=== PATIENT | male | born 1965 | race Caucasian/White ===

== ENCOUNTER 2018-08-22 18:14 | Observation (INO) | payer OTHER, SELFPAY ==
[2018-08-22] VITALS (8 sets, daily range): BP systolic 112–150; BP diastolic 70–98; PULSE 61–96; RESP 15–23; TEMP 36.8–37; O2SAT 96–99; BMI 30.9; BMI 29.8
--- NOTE | 2018-08-22 18:36 | EKG12_ITS ---
Test Reason : NEURO Blood Pressure : / mmHG Vent. Rate : 076 BPM Atrial Rate : 076 BPM P-R Int : 154 ms QRS Dur : 086 ms QT Int : 390 ms P-R-T Axes : 035 018 011 degrees QTc Int : 438 ms Normal sinus rhythm Normal ECG Confirmed by SONI BULLARD, ABENA ([id number]), editor farm journal BRADLEY MALLOY ([id number]) on 08/26/2018 1:56:03 PM Referred By: Bryon Ya Confirmed By:ABENA SHAFER MD
--- NOTE | 2018-08-22 18:36 | CT_ITS ---
STUDY: CTA NECK WITH CONTRAST REASON FOR EXAM: Male, 53 years old. Right sided numbness to the face and tongue. RADIATION DOSAGE (If Supplied By Facility): CTDIvol = ( 30.02 ) mGy, DLP = ( 1637.11 ) mGycm TECHNIQUE: CT angiography with multi-detector data acquisition was performed from the aortic arch to the skull base following intravenous administration of 100 IV Isovue 370. MIP images were reconstructed from the axial data set. Post-processing of the angiographic images was performed, with multiplanar reformation and 3D reconstruction. Individualized dose optimization techniques were used for this CT. COMPARISON: None. FINDINGS: AORTIC ARCH: There is a bovine origin of the great vessels arising from the aortic arch with a common origin of the brachiocephalic and left common carotid artery. Normal origin of the left subclavian artery. RIGHT CAROTID ARTERIES: Normal right common carotid artery (CCA). Normal right common carotid bulb. Normal origin of the right internal carotid (ICA) artery without a hemodynamically significant stenosis. Trace tortuosity of the visualized cervical portion of the right internal carotid artery. Normal origin of the right external carotid artery (ECA). LEFT CAROTID ARTERIES: Normal left common carotid artery (CCA). Normal left common carotid bulb. Normal origin of the left internal carotid (ICA) artery without a hemodynamically significant stenosis. Normal visualized cervical portion of the left internal carotid artery. Normal origin of the left external carotid artery (ECA). VERTEBRAL ARTERIES: Normal bilateral vertebral arteries. CT/CTA Neck W/WO Contrast IMPRESSION: Normal bilateral cervical carotid and vertebral arteries. Electronically Signed: Zachary Díaz DO at 19:15 EDT Tel [phone], Service support ,
--- NOTE | 2018-08-22 18:36 | CT_ITS ---
STUDY: CTA OF THE BRAIN REASON FOR EXAM: Male, 53 years old. Right sided numbness in the face and tongue. RADIATION DOSAGE (If Supplied By Facility): CTDIvol = ( 30.02 ) mGy, DLP = ( 1637.11 ) mGycm TECHNIQUE: CT angiography was performed with a multi-detector CT scanner. Data acquisition was obtained from the skull base through the vertex following intravenous administration of 100 IV Isovue 370. MIP images were reconstructed from the axial data set. Post-processing of the angiographic images was performed, with multiplanar reformation and 3D reconstruction. Individualized dose optimization techniques were used for this CT. COMPARISON: None. FINDINGS: Normal bilateral petrous carotid arteries. Normal right cavernous carotid artery with a normal supraclinoid bifurcation. Normal left cavernous carotid artery with a normal supraclinoid bifurcation. Normal right A1 segments of the anterior cerebral artery. Normal left A1 segments of the anterior cerebral artery. Normal intact anterior communicating artery (ACOM). Normal bilateral A2 segments of the anterior cerebral arteries. Normal right M1 and M2 segments of the middle cerebral arteries, with a normal M1 bifurcation. Normal left M1 and M2 segments of the middle cerebral arteries, with a normal M1 bifurcation. Normal right posterior communicating artery (PCOM). Normal left posterior communicating artery (PCOM). Normal bilateral vertebral arteries. Normal basilar artery with a normal basilar bifurcation. The visualized bilateral superior cerebellar (SCA) arteries are normal. 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 Normal P2 and visualized P3 segments of the bilateral posterior cerebral arteries. There is no demonstrated aneurysm of the [place] of [place]. There is no demonstrated abnormality of the visualized brain. 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 The P2 and P2 segments are partially supplied via the posterior communicating arteries. There is no aneurysm or other evidence of abnormality of the cervical loss. Electronically Signed: Zachary Díaz DO at 19:13 EDT Tel [phone], Service support ,
[2018-08-22 18:55] LABS: Absolute Lymphocyte Count 2.45 X10^3/ul (0.83-4.51); Absolute Neutrophil Count 3.7 X10^3/uL (2.0-7.7); Basophil# 0.03 X10^3/uL; Basophil% 0.4 % (0-1); Eosinophil# 0.16 X10^3/uL; Eosinophils% 2.3 % (0-5); Hematocrit 46.9 % (40-54); Hemoglobin 16.8 g/dl (13.0-16.5); Lymphocyte # 2.45 X10^3/ul (4.0); Lymphocyte % 35.4 % (19-41); Mean Corp Hgb Conc 35.8 g/gl (32-36); Mean Corpuscular Hgb 31.8 pg (27.0-32.0); Mean Corpuscular Volume 88.8 fL (80-94); Mean Platelet Vol. 10.3 fl (6.2-12.0); Monocyte# 0.55 X10^3/uL; Monocyte% 7.9 % (0-10); Neutrophil # 3.72 X10^3/uL (2.7-7.7); Neutrophil % 53.9 % (47-70); Platelet Count 246 K/mm3 (150-450); RBC Distribution Width CV 12.6 % (11.6-14.6); RBC Distribution Width SD 40.4 fl (35.1-43.9); Red Blood Count 5.28 M/mm3 (4.6-6.2); White Blood Count 6.9 K/mm3 (4.4-11.0)
[2018-08-22 18:56] LABS: POSITIVE COUNT NO; POSITIVE DIFFERENTIAL NO; POSITIVE MORPHOLOGY NO
[2018-08-22 19:01] LABS: Bedside Glucose 95 mg/dL (70-110)
[2018-08-22 19:04] LABS: Prothrombin Time (Protime)PT. 13.3 SECONDS (11.7-14.9)
[2018-08-22 19:08] LABS: Anion Gap 4 (5-15); BUN 22 mg/dL (7-18); BUN/Creat Ratio 19.3 RATIO (10-20); Calcium,Total 8.8 mg/dL (8.5-10.1); Chloride 106 mmol/L (98-107); Creatinine, Serum 1.14 mg/dL (0.70-1.30); EST Glomerular Filtration Rate 72 mL/min (>60); Est Glom Filt Rate - Afr Amer 87 mL/min (>60); Glucose 86 mg/dL (74-106); Potassium 3.7 mmol/L (3.5-5.1); Sodium Level 139 mmol/L (136-145)
--- NOTE | 2018-08-22 19:44 | PCM.HP.STD ---
Problem List (1) Stroke-like symptoms Status: Acute History of Present Illness Date of Admission: 08/22/18 Chief Complaint: right face numbness The patient is a 53 year old M with a significant history of chronic migraine; and kidney stones who presented to the emergency department with right sided facial numbness. His symptoms started a little over 4 hours before presentation. He reported that his symptoms started with tightness of the throat. Then he had numbness of the right side of his face and numbness of his tongue. Also he had teary and blurry vision of the right eye. He reported that he was unable to suck on a milkshake. His reports that patient had some mild changes in his speech. Patient denies any new focal weakness. However reported that he fell in June 2018. He reported that he had right arm weakness a week before presentation that he attributes to his fall. He reported that he is unable to wing his right shoulder and has seen a physical therapist for this. Emergency department doctor reported an NIH of 3 at presentation. Past Medical History Medical History: Medical History (Last Updated 08/22/18 @ 20:22 by Bryon Ya MD) Kidney stones N20.0 Migraine G43.909 Allergies No Known Allergies Allergy (Verified 08/22/18 18:22) Home Medications: Ambulatory Orders Medication Instructions Recorded NK 08/22/18 Surgical History: - - Left elbow bursa sac removal; and laser surgery on bilateral eyes. Lives: With Family Smoking Status: Never smoker Alcohol: None - *Family History Maternal History Items: Diabetes, Heart Disease, Hypertension, - - His mother had a massive heart attack Paternal History Items: Diabetes, Heart Disease - His father had multiple heart attack and from a heart attack., Hypertension Review of Systems Constitutional: Denies: Chills, Fever, Weight Change Eyes: Reports: Blurred vision - Right eye HEENT: Denies: Head Aches, Sinus Congestion, Sinus Drainage Cardiovascular: Denies: Chest Pain, Palpitations Respiratory: Denies: Cough, Shortness of breath at rest, Sputum production Gastrointestinal: Denies: Abdominal Pain, Nausea, Vomiting Genitourinary: Denies: Dysuria Musculoskeletal: Denies: Joint Pain, Joint Tenderness Skin: Denies: Rash, Wounds Neurological: Reports: Blurred vision - Right eye, Change in Speech, Focal weakness - Right shoulder that he attributes to a fall in and started about a week ago prior to his current presentation., Numbness. Denies: Tingling Psychiatric: Denies: Anxiety, Depression, Homicidal Ideations, Suicidal Ideations Hematologic/ Lymphatic: Denies: Easy Bruising, Easy Bleeding VTE Information - Inpt Only VTE Present on Admission: No VTE Mechan Device Prophylaxis: None VTE Pharm Prophylaxis ordered?: Yes Patient Problems: Active and Suspected Problems (Last Updated 08/22/18 @ 20:22 by Bryon Ya MD) Stroke-like symptoms (Acute) - Physical Exam General: Alert, Oriented x3, Cooperative HEENT: Atraumatic, PERRLA, EOMI, Normocephalic Neck: Supple, No JVD, Negative Carotid Bruits Lungs: Clear to auscultation, Normal air movement Cardiovascular: Regular rate, No murmurs Abdomen: Bowel Sounds Present, Soft, Non Tender Extremities: No edema, Capillary Refill Less than 3 Seconds Skin: No rashes, No breakdown Musculoskeletal: No Tenderness to Palpation of Joints or Extremities Neurological: Cranial nerves II-XII grossly intact, Motor Exam 5/5 strength throughout, Facial Droop - Mild on the right side, - - No dysmetria. Sensation changes on the right face. Can wrinkle bilateral forehead. Psych/Mental Status: Normal Affect, Appropriate Vital Signs Temp Pulse Resp BP Pulse Ox 98.6 F 96 16 112/70 99 08/22/18 18:15 08/22/18 19:30 08/22/18 19:30 08/22/18 19:30 08/22/18 19:30 Oxygen Delivery Method Room Air Weight: 103.374 kg Body Mass Index (BMI) 30.9 Finger Stick Blood Glucose 95 Laboratory Tests Past 24 Hrs 08/22/18 08/22/18 08/22/18 18:23 18:23 18:23 WBC 6.9 RBC 5.28 Hgb 16.8 H Hct 46.9 MCV 88.8 MCH 31.8 MCHC 35.8 RDW 12.6 RDW Differential 40.4 Plt Count 246 MPV 10.3 Immature Gran % (Auto) 0.100 Neut % (Auto) 53.9 Lymph % (Auto) 35.4 [place] % (Auto) 7.9 Eos % (Auto) 2.3 Baso % (Auto) 0.4 Absolute Neuts (auto) 3.7 Absolute Lymphs (auto) 2.45 Total Counted Not Reportable PT 13.3 INR 1.0 APTT 29.0 Sodium 139 Potassium 3.7 Chloride 106 Carbon Dioxide 29.0 Anion Gap 4 L BUN 22 H Creatinine 1.14 Estim Creat Clear Calc 83.20 Est GFR (MDRD) Af Amer 87 Est GFR (MDRD) Non-Af 72 BUN/Creatinine Ratio 19.3 Glucose 86 Calcium 8.8 Troponin I < 0.015 POC Glucose 08/22/18 18:56 POC Glucose 95 Assessment/Plan All Active Problems (Last Updated 08/22/18 @ 20:22 by Bryon Ya MD) Stroke-like symptoms (Acute) The patient is a 53 year old M with a significant history of chronic migraine; and kidney stones who presented to the emergency department with right sided facial numbness; tongue numbness; blurry vision of the right; mild dysarthria and difficulty sucking a milkshake consistent with strokelike symptoms. Strokelike symptoms Emergency Department doctor reported that NINDS NIH Scale on presentation of 3. CT/CTA head and neck per stroke protocol was unremarkable. Physical therapy, occupational therapy and speech therapy to work with patient. N.p.o. until bedside swallow eval. Daily aspirin. High intensity statin Lipid profile and A1c ordered. His blood pressure is within goal and no need for permissive hypertension at this time. Emergency department doctor discussed the case with a neurologist, Dr. Barragan and an MRI was recommended. Will do MRI in a.m. Echocardiogram ordered. Placed on PCU on telemetry. Differential diagnosis include complex migraine. Of note patient was not hypoglycemic on presentation. Patient could raise bilateral eyebrows; and wrinkle his forehead making Keith's palsy less likely. Consider discussing case with neurologist. DVT prophylaxis Subcutaneous heparin ordered. Code Visit OBSV E&M: 00757 Initial observation care L3
--- NOTE | 2018-08-22 19:49 | ED.DCSUM_ITS ---
- ER Visit Summary Date of Service: 08/22/18 Chief Complaint: [Paresthesias to right side of face] History of Present Illness: The patient is a 53 M [presents to the emergency department with numbness and tingling to the right side of his face and the right side of his mouth not working right. Patient states that he had some vague symptoms that started around 2 PM where he yawned and he felt a kind of a tightness to the right side of his face and just an odd numbness. Patient then apparently was trying to eat a milkshake around 4:30 PM when he noticed that he was drooling and could not work the straw properly. Presents to the ER for evaluation. Patient denies any falls or head injuries. He denies any focal weakness. He denies visual changes. He denies difficulty with speech. Denies recent illness or viral infection. Denies any new medications. Patient does have a history of migraines but he does not have a migraine currently.] Physical Examination: [HEENT-PERRLA, EOMI. Cranial nerves II through XII grossly intact. TMs clear. Mucous membranes moist. No adenopathy. Patient is able to wrinkle both sides of the forehead symmetrically. Patient has weakness of the right upper eyelid. Patient has right-sided facial droop. Tongue is in the midline without fasciculation. Cardiovascular-regular rate and rhythm without murmur or ectopy Lungs-clear to auscultation, chest wall stable without crepitus or subcu emphysema Abdomen-normoactive bowel sounds, soft, nontender, no rebound or rigidity, no peritoneal signs. Neuro [id number] and heel bowman testing within normal limits, negative Romberg, negative , Fundi benign. NIH stroke scale was a 3. As patient had somewhat decreased sensation to the right side of the face and right facial droop. Extremities-intact ?4, normal range of motion, normal pulses, atraumatic] Test Results: [EKG obtained arrival shows sinus rhythm with a ventricular rate of 76 bpm with no acute I segment changes. CBC with it was normal. Chemistries were normal. Troponin is less than 0.015. CTA of the head and neck were normal.] Emergency Department Course and Treatment: [Case was discussed with neurologist on-call Dr. Barragan and patient will be admitted to the hospital for further work-up and evaluation to rule out central cause of right-sided facial in the differential still is Keith's palsy.] Treatment Plan: [Admit for further work-up and evaluation including MRI] Disposition: [Admit] Impression: [CVA Right-sided facial droop Paresthesias right face] This note was generated with [employer] dictation software. It may contain incorrect words, spelling, and punctuation that were not noted in review of the chart prior to signing ED Disposition - Plan for ED Patient: Referrals: Trish Guillaume NP-C [Primary Care Provider] -
--- NOTE | 2018-08-22 20:53 | ECHOD_ITS ---
Reason For Study: TIA/CVA Procedure This was a 2D Doppler, Color Flow transthoracic echocardiogram. The study was technically difficult. Exam performed portable in patient room. Left Ventricle Normal LV size. Left ventricular systolic function is normal. The estimated ejection fraction is 65 %. No evidence for diastolic dysfunction. No regional wall motion abnormalities noted. Right Ventricle Normal RV size. Normal systolic function. Atria Normal left atrium. Normal right atrium. No doppler evidence for ASD. Mitral Valve There is no mitral annular calcification. Normal mitral valve. Trivial mitral valve insufficiency. Tricuspid Valve Normal tricuspid valve. Trivial tricuspid valve insufficiency. Right ventricular systolic pressure estimated to be 22 mmHg. Aortic Valve Trisinus/trileaflet aortic valve. Normal aortic valve. Pulmonic Valve The pulmonic valve is not well visualized. Trivial pulmonic valve insufficiency. Great Vessels Normal sized aortic root. Pericardium/Pleural No pericardial effusion. Medication Performed a rapid injection of agitated mix of 9 cc saline and 1cc air to assess for atrial septal defect. MMode/2D Measurements & Calculations LVIDd: 4.4 cm IVSd: 1.2 cm Ao root diam: 3.3 cm LVIDs: 2.6 cm LVPWd: 1.0 cm LA dimension: 3.7 cm RVDd: 4.0 cm FS: 40.9 % LAV(MOD-bp): 59.5 ml LA A4 area: 20.9 cm2 RA A4 area: 16.8 cm2 LAV(MOD-bp) Indexed: 26.8 ml/m2 LAV(MOD-sp2): 50.4 ml LAV(MOD-sp4): 65.2 ml Time Measurements MV dec time: 0.20 sec Doppler Measurements & Calculations MV E max jasmeet: 78.9 cm/sec Lat Peak E' Jasmeet: 14.7 cm/sec Med Peak E' Jasmeet: 11.8 cm/sec MV A max jasmeet: 54.0 cm/sec E/E' lat: 5.4 E/E' med: 6.7 MV E/A: 1.5 MV V2 max: 78.7 cm/sec MV P1/2t max jasmeet: 81.4 cm/sec Ao V2 max: 115.6 cm/sec MV max P.5 mmHg MV P1/2t: 74.2 msec Ao max P.3 mmHg MV V2 mean: 40.3 cm/sec MV dec slope: 321.2 cm/sec2 MV mean P.79 mmHg MV V2 VTI: 22.0 cm MVA(P1/2t): 3.0 cm2 LV V1 max: 80.0 cm/sec PA V2 max: 80.9 cm/sec TR max jasmeet: 217.8 cm/sec LV V1 max P.6 mmHg TR max P.0 mmHg Interpretation Summary The study was technically difficult. Left ventricular systolic function is normal. The estimated ejection fraction is 65 %. Trivial mitral valve insufficiency. Trivial tricuspid valve insufficiency. Trivial pulmonic valve insufficiency. Right ventricular systolic pressure estimated to be 22 mmHg. No evidence for diastolic dysfunction. Ordering Physician: Bryon Ya Referring Physician: Bryon Ya Performed By: Brodwolf, Manjinder, RCS
--- NOTE | 2018-08-22 20:53 | MRI_ITS ---
STUDY: MRI BRAIN WITHOUT CONTRAST REASON FOR EXAM: Male, 53 years old. Right face and tongue numbness, right double vision TECHNIQUE: Standardized multiplanar fat and water weighted pulse sequences were obtained. COMPARISON: None. FINDINGS: Normal size of the ventricles and extra-axial spaces for the patient's age. Normal white matter tracts of the supratentorial brain. Normal bilateral basal ganglia. Normal thalami. There is no extra-axial fluid accumulation. Normal flow voids within the major intracranial circulation suggesting patency by spin echo criteria. Normal sella turcica, pituitary gland, infundibular stalk, optic chiasm and hypothalamus. Normal tectal plate and pineal gland. Normal midbrain, teofilo and medulla. Normal cerebellum. Normal basal cisterns. Normal bilateral temporal bones. Normal bilateral internal auditory canals. No demonstrated orbital abnormality, within the constraints of a routine brain study. Normal visualized paranasal sinuses. Normal calvarium and skull base. Normal visualized soft tissue structures. Normal visualized upper cervical spine. MRI/Brain without Contrast IMPRESSION: Normal unenhanced MRI of the brain. Electronically Signed: Sweetie Hardy, at 13:24 EDT Tel , Service support ,
[2018-08-22 21:41] LABS: Hemoglobin A1c 5.3 % (4.2-6.3)
[2018-08-22] MEDS: Atorvastatin Calcium 80 MG Tablet PO (22:04)
[2018-08-22] MEDS: Heparin Injection (Vial) 5,000 UNIT/ML VIAL 5000 UNIT SC (22:05)
[2018-08-23] VITALS (10 sets, daily range): BP systolic 115–143; BP diastolic 64–95; PULSE 57–76; RESP 17–18; TEMP 36.6–36.9; O2SAT 97–98; BMI 29.8
[2018-08-23] MEDS: Heparin Injection (Vial) 5,000 UNIT/ML VIAL 5000 UNIT SC (05:23)
[2018-08-23 07:01] LABS: Cholesterol 164 mg/dL (200); High Density Lipoprotein 45 mg/dL; Triglycerides 86 mg/dL; Very Low Density Lipoprotein 17 mg/dL (5-40)
[2018-08-23] MEDS: Aspirin 81 MG TAB.CHEW PO (08:36)
--- NOTE | 2018-08-23 13:58 | DCINST_ITS ---
- Discharge Diagnoses Current Active Problems: Current Active and Chronic Problems (Last Updated 08/22/18 @ 20:22 by Bryon Ya MD) Stroke-like symptoms (Acute) You will use the following diet at home:: Regular Your food should be the consistency of: Regular Discharge Activity: Return to Normal Activity Weight Bearing Status: Full weight bearing Call your doctor if you observe: Fever of 101 or Higher, Shortness of breath, Dizziness, Fainting spells, Chest pain, Increased palpitations (irregular heartbeat), Uncontrolled pain Instructions: Keith's Palsy Allergies/Adverse Reactions: Allergies No Known Allergies Allergy (Verified 08/22/18 18:22) Medications to take at Discharge Acyclovir [Zovirax] 400 mg PO 5X/DAY 10 Days cap 08/23/18 Aspirin [Aspirin, Baby] 81 mg PO DAILY@0800 #90 tab.chew 08/23/18 Prednisone 60 mg PO DAILY #30 tab 08/23/18 The following prescriptions were given: Acyclovir [Zovirax] 400 mg PO 5X/DAY 10 Days cap Aspirin [Aspirin, Baby] 81 mg PO DAILY@0800 #90 tab.chew Prednisone 60 mg PO DAILY #30 tab Primary Care Physician: Trish Guillaume NP-C [Primary Care Provider] - Please follow up with your Primary Care Physician in: 1 week. Test Results: Test results from this visit will be discussed in further detail at your follow- up appointment, if applicable.
--- NOTE | 2018-08-23 13:58 | PCM.DC.SUM ---
Discharge Date and Diagnosis Date of Admission: 08/22/18 Date of Discharge: 08/23/18 - Primary Discharge Diagnosis Active and Suspected Problems (Last Updated 08/22/18 @ 20:22 by Bryon Ya MD) Acute right Keith's palsy. 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 The P2 and P2 segments are partially supplied via the posterior communicating arteries. There is no aneurysm or other evidence of abnormality of the cervical loss. Electronically Signed: Zachary Díaz DO at 19:13 EDT Tel [phone], Service support , Neck CTA 08/22/18 18:36 IMPRESSION: Normal bilateral cervical carotid and vertebral arteries. Electronically Signed: Zachary Díaz DO at 19:15 EDT Tel [phone], Service support , Brain MRI 08/22/18 20:53 IMPRESSION: Normal unenhanced MRI of the brain. Electronically Signed: Sweetie Hardy, at 13:24 EDT Tel , Service support , Operations: None Procedures: 2-D Echocardiogram, EKG Summary of Care Provided: Patient seen and examined on day of discharge and appeared to be stable to be discharged home. He remained with right facial droop and paresthesia which is secondary to acute right Keith's palsy. MRI brain was negative for acute stroke. His vital signs were stable. The patient is a 53 year old M admitted because of paresthesia and facial droop on the right side of his face. The working admission diagnosis was probable stroke. Patient underwent full stroke workup which was unremarkable and negative for acute stroke. He had head and neck CTA on admission that revealed no evidence of acute infarction or hemorrhage and no evidence of hemodynamically significant vascular disease or stenosis. Patient did have lower motor neuron right facial palsy secondary to Keith's palsy. MRI brain revealed no evidence of acute infarction or hemorrhage. 2D echocardiogram revealed ejection fraction of 65%, normal LV size and function, RVSP of 22, trivial MR and TR. Patient was treated with aspirin and statin initially because of concern of stroke. His vital signs were stable. His routine blood work was unremarkable. Troponin, EKG and hemoglobin A1c were unremarkable. Lipid profile revealed cholesterol of 164, LDL cholesterol of 102 and HDL cholesterol 45. Acute stroke ruled out. Patient was started on prednisone and acyclovir for acute Keith's palsy. Patient discharged home in a stable medical condition, discharged on prednisone 60 mg daily for 5 days and then to taper over 5 days completing 10 days of treatment, discharged on acyclovir 400 mg p.o. 5 times a day for 10 days, discharged on baby aspirin, recommended follow-up with PCP in 1 week. - Physical Exam General: Alert, Oriented x3, Cooperative, No apparent distress HEENT: Atraumatic, PERRLA, EOMI, Normocephalic Oral: Moist Mucosa, No Gingival or Mucosal Lesions/ Ulcerations Neck: Supple, No JVD, Negative Carotid Bruits, Trachea Midline, Thyroid Normal Size and Texture Lungs: Clear to auscultation, Normal air movement, No rhonchi, No wheeze, No rales Cardiovascular: Regular rate, Regular Rhythm, Normal S1, Normal S2, PMI Normal Abdomen: Bowel Sounds Present, Soft, Non Tender, Non-Distended, No Hepato-splenomegaly Extremities: No clubbing, No cyanosis, No edema Skin: No rashes, No breakdown Lymphatic: No Cervical, Supraclavicular, or Inguinal Adenopathy Neurological: Motor Exam 5/5 strength throughout, - - Right lower motor neuron facial palsy, right facial droop. Other cranial nerves are intact. Psych/Mental Status: Normal Affect, Appropriate Vital Signs Temp Pulse Resp BP Pulse Ox 97.8 F 67 18 136/95 H 97 08/23/18 12:30 08/23/18 12:30 08/23/18 12:30 08/23/18 12:30 08/23/18 12:30 Oxygen Delivery Method Room Air Weight: 220 lb 0.341 oz Body Mass Index (BMI) 29.8 Finger Stick Blood Glucose 95 Intake and Output for Last 24 Hours 08/21/18 08/22/18 08/23/18 23:59 23:59 23:59 Intake Total 650 / 650 Balance 650 / 650 Laboratory Tests Past 24 Hrs 08/22/18 08/22/18 08/22/18 18:23 18:23 18:23 WBC 6.9 RBC 5.28 Hgb 16.8 H Hct 46.9 MCV 88.8 MCH 31.8 MCHC 35.8 RDW 12.6 RDW Differential 40.4 Plt Count 246 MPV 10.3 Immature Gran % (Auto) 0.100 Neut % (Auto) 53.9 Lymph % (Auto) 35.4 [place] % (Auto) 7.9 Eos % (Auto) 2.3 Baso % (Auto) 0.4 Absolute Neuts (auto) 3.7 Absolute Lymphs (auto) 2.45 Total Counted Not Reportable PT 13.3 INR 1.0 APTT 29.0 Sodium 139 Potassium 3.7 Chloride 106 Carbon Dioxide 29.0 Anion Gap 4 L BUN 22 H Creatinine 1.14 Estim Creat Clear Calc 83.20 Est GFR (MDRD) Af Amer 87 Est GFR (MDRD) Non-Af 72 BUN/Creatinine Ratio 19.3 Glucose 86 Hemoglobin A1c Calcium 8.8 Troponin I < 0.015 Triglycerides Cholesterol LDL Cholesterol VLDL Cholesterol HDL Cholesterol 08/22/18 08/23/18 18:23 06:00 WBC RBC Hgb Hct MCV MCH MCHC RDW RDW Differential Plt Count MPV Immature Gran % (Auto) Neut % (Auto) Lymph % (Auto) [place] % (Auto) Eos % (Auto) Baso % (Auto) Absolute Neuts (auto) Absolute Lymphs (auto) Total Counted PT INR APTT Sodium Potassium Chloride Carbon Dioxide Anion Gap BUN Creatinine Estim Creat Clear Calc Est GFR (MDRD) Af Amer Est GFR (MDRD) Non-Af BUN/Creatinine Ratio Glucose Hemoglobin A1c 5.3 Calcium Troponin I Triglycerides 86 Cholesterol 164 LDL Cholesterol 102 VLDL Cholesterol 17 HDL Cholesterol 45 POC Glucose 08/22/18 18:56 POC Glucose 95 Discharge Activity: Return to Normal Activity Weight Bearing Status: Full weight bearing Call your doctor if you observe: Fever of 101 or Higher, Shortness of breath, Dizziness, Fainting spells, Chest pain, Increased palpitations (irregular heartbeat), Uncontrolled pain Home Medications: Medications to take at Discharge Acyclovir [Zovirax] 400 mg PO 5X/DAY 10 Days cap 08/23/18 Aspirin [Aspirin, Baby] 81 mg PO DAILY@0800 #90 tab.[email or web address] 08/23/18 Prednisone 60 mg PO DAILY #30 tab 08/23/18 Following Prescrptions Were Given to Patient: Acyclovir [Zovirax] 400 mg PO 5X/DAY 10 Days cap Aspirin [Aspirin, Baby] 81 mg PO DAILY@0800 #90 tab.[email or web address] Prednisone 60 mg PO DAILY #30 tab Primary Care Physician: Trish Guillaume NP-C [Primary Care Provider] - Please follow up with your Primary Care Physician in: 1 week. Patient Instructions: Keith's Palsy Disposition: Home Minutes spent on discharge:: 25 Patient Condition:: Stable Medical Necessity - Tobacco Use Smoking Status: Never smoker Tobacco Use: Non-smoker Meaningful Use Info Meaningful Use Diagnoses (Choose all that apply): None applicable Code Visit OBSV E&M: 55913 Observation care discharge
[2018-08-23] MEDS: predniSONE 20 MG Tablet 60 MG PO (15:01)
[2018-08-23] MEDS: Acyclovir 200 MG Capsule 400 MG PO (15:02)
== END 2018-08-23 13:58 | disposition home or self-care (01) ==
LOC: ED 20:32 → PCU 20:41
PROVIDERS: Admitting Provider Hospitalist; Emergency Provider Emergency Medicine; Family Provider Emergency Medicine; PCP Nurse Practitioner Adult Health; Referring Provider Hospitalist; Visit Provider Hospitalist
DX: G51.0 Bell's palsy (principal); R29.703 NIHSS score 3
CPT/HCPCS: 36415; 70496; 70498; 70551; 80048; 80061; 82962; 83036; 84484; 85025; 85610; 85730; 92523; 92610; 93005; 93306; 96372; 97161; 97165; 99218; 99285; Q9957; Q9967; A4216; G0378